=== PATIENT | female | born 1985 | race Caucasian/White ===

== ENCOUNTER 2017-01-25 14:04 | Emergency (ER) | payer OTHER, SELFPAY ==
[2017-01-25 15:37] LABS: Bilirubin Negative (Negative); Blood, Urine Small (Negative); Glucose, Urine (Dipstick) Negative (Negative); Leukocyte Small (Negative); Nitrite Negative (Negative); Protein, Urine (Dipstick) Negative (Neg-Trace); Specific Gravity, Urine 1.015 (1.005-1.030); Urobilinogen 0.2 mg/dL (0.2-1.0); pH, Urine 5.5 (5.0-9.0)
[2017-01-25 15:40] LABS: Clarity SL HAZY (Clear); Pregnancy Test - Urine (BHCG) Negative (NEGATIVE); Specific Gravity 1.015 (1.002-1.036)
[2017-01-25 15:41] LABS: Pregu Control Background? CLEAR/WHITE (CLR/WHITE); Pregu Control Bar Appear? YES (CONTROL BAR)
[2017-01-25 16:03] LABS: ALT (SGPT) 17 U/L (8-55); AST (SGOT) 17 U/L (5-34); Albumin 3.8 g/dL (3.5-5.0); Alkaline Phosphatase 108 U/L (40-150); Anion Gap 15 mmol/L (10-20); BUN (Urea Nitrogen) 10 mg/dL (7.0-18.7); Bilirubin, Total 0.2 mg/dL (0.2-1.2); CK (CPK) 106 U/L (29-168); Calc. Creatinine Clearance 0 mL/min (70-130); Calcium 8.8 mg/dL (7.8-10.44); Carbon Dioxide 25 mmol/L (22-29); Chloride 103 mmol/L (98-107); Estimated GFR-MDRD 80; Globulin 3.4 g/dL (2.4-3.5); Glucose 108 mg/dL (70-105); Potassium 4.1 mmol/L (3.5-5.1); Protein, Total 7.2 g/dL (6.0-8.3); Sodium 139 mmol/L (136-145)
[2017-01-25 16:04] LABS: RBC/HPF 0-3 HPF (0-3); Squamous Epithelial 0-3 HPF (0-3); WBC/HPF 0-3 HPF (0-3)
[2017-01-25 16:04] LABS: Troponin I Less than 0.010 ng/mL (< 0.028)
--- NOTE | 2017-01-25 16:12 | RAD ---
CHEST TWO VIEWS: History: Left upper back pain. Comparison: None. FINDINGS: Two views chest. Normal cardiac silhouette. Pulmonary vessels and hilum are normal. No masses or con solidation. No pneumothorax or osseous abnormalities. IMPRESSION: No acute cardiopulmonary process. POS: [facility]
== END 2017-01-25 16:24 | disposition home or self-care (01) ==
LOC: NAV ERS 14:04
DX: M54.12 Radiculopathy, cervical region (principal); F41.9 Anxiety disorder, unspecified; F32.9 Major depressive disorder, single episode, unspecified; Z79.899 Other long term (current) drug therapy
CPT/HCPCS: 71020; 80053; 81003; 81015; 81025; 82550; 83735; 84484; 93005

== ENCOUNTER 2020-11-27 09:47 | Emergency (ER) | payer OTHER, SELFPAY ==
[2020-11-27] MEDS ORDERED: clonazePAM 0.5 MG TAB ONE (10:33)
== END 2020-11-27 10:35 | disposition home or self-care (01) ==
LOC: NAV ERS 09:47
DX: F41.9 Anxiety disorder, unspecified (principal); J45.909 Unspecified asthma, uncomplicated; Z79.899 Other long term (current) drug therapy
CPT/HCPCS: 99283